=== PATIENT | female | born 1975 | race Two or more races ===

== ENCOUNTER 2018-08-02 09:35 | Emergency (ER) | payer BC ==
[~2018-08-02] VITALS: Ht 167.6 cm; Wt 51.3 kg
--- NOTE | 2018-08-02 09:48 | NUR ---
PT ALERT WITH OEINTATION X 4 WITH C/C OF ABDOMINAL DISCOMFRT PT WALKED INTO ROOM NO SIGNS OF TRAUMA NOTED.
[2018-08-02 10:08] LABS: APPEARANCE,URINE Slightly Cloudy (CLEAR); BILIRUBIN,URINE SMALL (NEGATIVE); BLOOD, URINE Trace-intact Ery/uL (NEGATIVE); COLOR,URINE Yellow (YELLOW); KETONES,URINE Trace (NEGATIVE); LEUKOCYTE ESTERASE ,URINE Trace (NEGATIVE); NITRITE, URINE Negative (NEGATIVE); PH,URINE 6.5 (5.0-8.0); PROTEIN,URINE Negative (NEGATIVE); UGLUCOSE Negative (NEGATIVE); UROBILINOGEN,URINE 0.2 EU/dL (0.2)
[2018-08-02 10:25] LABS: RBC,URINE 0-2 /HPF (0-2); WBC,URINE 0-2 /HPF (0-3)
[2018-08-02 10:26] LABS: BACTERIA,URINE Rare /HPF (None Seen); SQUAMOUS EPITHELIAL CELL,UR Few /HPF (None Seen)
[2018-08-02 10:34] VITALS: BP 114/71
--- NOTE | 2018-08-02 10:34 | NUR ---
PT DISCHARGED TO HOME CARE GIVEN [facility] WILL FOLLOW UP WITH DREDGEMASTER MD
== END 2018-08-02 10:35 | disposition home or self-care (01) ==
LOC: ER 09:37
DX: R10.30 Lower abdominal pain, unspecified (principal); M54.5 Low back pain
CPT/HCPCS: 81000-TC; 84703-TC; A4606